=== PATIENT | male | born 1970 | race Hispanic/Latino ===

== ENCOUNTER 2019-08-08 09:42 | Outpatient (CLI) | payer OTHER ==
--- NOTE | 2019-08-08 11:28 | CT ---
CT BRAIN PERFORMED WITHOUT CONTRAST ENHANCEMENT: Date: 08/08/2019 HISTORY: Caudate nucleus hemorrhage follow-up. COMPARISON: None available. FINDINGS: The ventricular and cisternal system is within normal limits. A focus of decreased attenuation is see n along the posterior aspect of the caudate nucleus on the right. No hemorrhage is seen associated wi th this. There is some minimal mass effect on the right lateral ventricle. IMPRESSION: Focus of decreased attenuation along the posterior aspect of the right caudate nucleus. No hemorrhage . POS: [facility]
== END 2019-08-08 09:43 | disposition home or self-care (01) ==
LOC: MADCT 09:42
PROVIDERS: ATTEND Neurological Surgery
DX: I61.0 Nontraumatic intracerebral hemorrhage in hemisphere, subcortical (principal)
CPT/HCPCS: 70450